=== PATIENT | female | born 1965 | race Caucasian/White ===

== ENCOUNTER → 2021-01-30 | Outpatient (CLI) | payer BC | LOC: LAB 10:33 | DX: E78.2 Mixed hyperlipidemia (principal) | CPT/HCPCS: 36415; 83695 ==

== ENCOUNTER → 2021-11-03 | Outpatient (CLI) | payer BC ==
[~2021-11-03] MED LIST: IOHEXOL 240 MG/ML 50ML VIAL. ONE; IOHEXOL 240 MG/ML 50ML VIAL. PO ONE
--- NOTE | 2021-11-03 17:05 | RAD ---
Examination: CT chest abdomen pelvis without IV contrast and with oral contrast HISTORY: History of dyspnea, bloating, diffuse abdominal pain, enlarged lymph nodes COMPARISON: None available TECHNIQUE: Axial CT images of the chest abdomen pelvis were performed without IV contrast and with or al contrast. Coronal and sagittal reformats are performed Exposure: One or more of the following individualized dose reduction techniques were utilized for thi s examination: 1. Automated exposure control 2. Adjustment of the mA and/or kV according to patient size 3. Use of iterative reconstruction technique FINDINGS: The visualized thyroid gland grossly appears unremarkable. Central airways are patent. The heart size grossly appears unremarkable. Left-sided cardiac pacer pacer is identified. There is a calcified gra nuloma identified in the left upper lobe of the lung measuring 7 mm. No evidence of free air identifi ed in the abdomen. The visualized noncontrasted liver, spleen, adrenals grossly appears unremarkable. The gallbladder is mildly distended. The stomach is mildly distended. The visualized pancreas grossly appears unremarka ble. The small bowel is nondilated. Moderate amount of feces and gas identified in the colon. Urinary bladder is mildly distended. No evidence of intrarenal collecting system calculi or hydronephrosis identified. Mild degenerative c hanges thoracic and lumbar spine. IMPRESSION: 1. No acute intra-abdominal findings. 2. Moderate amount of feces and gas identified in the colon could be due to constipation. 3. 7 mm calcified granuloma identified in the left upper lobe of the lung. Electronically signed by: Riccardo Do MD (11/03/2021 5:02 PM) [id number]
== END ==
LOC: CT 14:12
PROVIDERS: ATTEND Internal Medicine
DX: J84.10 Pulmonary fibrosis, unspecified (principal); K82.8 Other specified diseases of gallbladder; K56.41 Fecal impaction; K31.89 Other diseases of stomach and duodenum; R59.0 Localized enlarged lymph nodes; R14.0 Abdominal distension (gaseous); M47.816 Spondylosis without myelopathy or radiculopathy, lumbar region; M47.815 Spondylosis without myelopathy or radiculopathy, thoracolumbar region
CPT/HCPCS: 71250; 74176